=== PATIENT | female | born 1990 | race Caucasian/White ===

== ENCOUNTER 2019-07-19 04:58 | Emergency (ER) | payer OTHER ==
[~2019-07-19] VITALS: Ht 162.6 cm; Wt 59.0 kg
[2019-07-19] MEDS ORDERED: OXYCODONE HCL/ACETAMINOPHEN 5/325MG TABLET PO ONE (06:45)
[2019-07-19] MEDS ORDERED: TETANUS, DIPHTHERIA, PERTUSSIS VAC/PF 0.5ML (>7YR OLD) IM ONE (06:45)
[2019-07-19] MEDS ORDERED: LIDOCAINE 1%/EPI 1:100,000 10 ML VIAL IJ ONE (06:45)
[2019-07-19] MEDS ORDERED: LIDOCAINE HCL/EPINEPHRINE 1%-EPI 1:100,000 20 ML VIAL INFIL SCH (07:05)
[2019-07-19] MEDS ORDERED: FLUORESCEIN SODIUM 1MG/STRIP LEFTEYE ONE (07:45)
[2019-07-19] MEDS ORDERED: TETRACAINE 0.5% OPHTH DROPS 4ML LEFTEYE ONE (07:45)
[2019-07-19 09:18] VITALS: BP 98/51
== END 2019-07-19 09:18 | disposition home or self-care (01) ==
LOC: ER 05:35
DX: S01.01XA Laceration without foreign body of scalp, initial encounter (principal); H57.12 Ocular pain, left eye; Y04.2XXA Assault by strike against or bumped into by another person, initial encounter; Y93.89 Activity, other specified; Y92.89 Other specified places as the place of occurrence of the external cause; H20.9 Unspecified iridocyclitis; Z23 Encounter for immunization
CPT/HCPCS: 70450; 70486; 90471; 90715; 99284; J3490

== ENCOUNTER 2019-07-20 18:23 | Emergency (ER) | payer OTHER ==
[~2019-07-20] VITALS: Ht 165.1 cm; Wt 60.0 kg
[2019-07-20] MEDS ORDERED: METHOCARBAMOL 750MG TABLET PO SCH (23:30)
[2019-07-20] MEDS ORDERED: HYDROCODONE/ACETAMINOPHEN 5/325MG TABLET PO ONE (23:30)
[2019-07-21 02:15] VITALS: BP 96/57
== END 2019-07-21 02:15 | disposition home or self-care (01) ==
LOC: ER 18:23
DX: M54.5 Low back pain (principal); Y08.89XA Assault by other specified means, initial encounter; Y93.89 Activity, other specified; Y92.89 Other specified places as the place of occurrence of the external cause; Y99.8 Other external cause status; Z90.89 Acquired absence of other organs
CPT/HCPCS: 81025; 99283

== ENCOUNTER 2019-08-03 13:55 | Emergency (ER) | payer OTHER ==
[~2019-08-03] VITALS: Ht 165.1 cm; Wt 59.0 kg
[2019-08-03 18:35] VITALS: BP 110/67
== END 2019-08-03 18:36 | disposition home or self-care (01) ==
LOC: ER 13:55
DX: Z48.02 Encounter for removal of sutures (principal)
CPT/HCPCS: 99281

== ENCOUNTER 2019-11-16 18:10 | Emergency (ER) | payer SELFPAY ==
[~2019-11-16] VITALS: Ht 165.1 cm; Wt 57.0 kg
[2019-11-16 22:24] VITALS: BP 112/68
== END 2019-11-16 22:25 | disposition home or self-care (01) ==
LOC: ER 18:10
DX: S60.561A Insect bite (nonvenomous) of right hand, initial encounter (principal); L03.113 Cellulitis of right upper limb; W57.XXXA Bitten or stung by nonvenomous insect and other nonvenomous arthropods, initial encounter; Y93.89 Activity, other specified; Y92.89 Other specified places as the place of occurrence of the external cause
CPT/HCPCS: 99281

== ENCOUNTER 2019-11-24 10:45 | Emergency (ER) | payer SELFPAY ==
[~2019-11-24] VITALS: Ht 165.1 cm; Wt 60.0 kg
[2019-11-24] MEDS ORDERED: ONDANSETRON HCL 4MG/2ML INJ IV STA (11:34)
[2019-11-24] MEDS ORDERED: SODIUM CHLORIDE 0.9% 1,000 ML IV ONE (11:34)
[2019-11-24] MEDS ORDERED: FAMOTIDINE 20MG/2ML VIAL IV STA (11:34)
[2019-11-24] MEDS ORDERED: KETOROLAC 30MG/ML VIAL IV STA (11:34)
[2019-11-24 12:42] LABS: BASOPHILS % 1.1 % (0.0-2.0); EOSINOPHILS % 2.9 % (0.0-5.0); HEMATOCRIT. 41.5 % (36.0-48.0); HEMOGLOBIN. 14.7 g/dL (12.0-16.0); LYMPHOCYTES % 48.5 % (20.0-50.0); MEAN CORPUSCULAR HEMOGLOBIN 31.8 pg (28.0-32.0); MEAN CORPUSCULAR VOLUME 90.1 fL (81.0-99.0); MEAN PLATELET VOLUME 8.4 fl (7.4-10.4); MONOCYTES % 8.6 % (2.0-8.0); NEUTROPHILS % 38.9 % (40.0-76.0); PLATELET 238 x1000/uL (130-400)
[2019-11-24 12:46] LABS: CLARITY URINE CLEAR (CLEAR); COLOR URINE YELLOW (YELLOW); KETONES URINE NEGATIVE (NEGATIVE); LEUKOCYTE ESTERASE URINE 1+ (NEGATIVE); NITRITE URINE NEGATIVE (NEGATIVE); OCCULT BLOOD URINE 2+ (NEGATIVE); PH URINE 5.5 (4.5-8.0); PROTEIN URINE TRACE (NEGATIVE); SPECIFIC GRAVITY URINE 1.024 (1.005-1.030)
[2019-11-24 12:48] LABS: CHLORIDE 108 mEq/L (98-107)
[2019-11-24 12:49] LABS: PROTHROMBIN TIME 10.1 sec (9.6-11.0)
[2019-11-24 13:02] LABS: *AMPHETAMINES SCREEN URINE NEGATIVE (NEGATIVE); *BARBITURATES SCREEN URINE NEGATIVE (NEGATIVE); *BENZODIAZEPINES SCREEN URINE NEGATIVE (NEGATIVE); *COCAINE SCREEN URINE NEGATIVE (NEGATIVE)
[2019-11-24 13:03] LABS: METHADONE URINE SCREEN NEGATIVE (NEGATIVE); OPIATES URINE SCREEN NEGATIVE (NEGATIVE); PHENCYCLIDINE URINE SCREEN NEGATIVE (NEGATIVE)
[2019-11-24 13:04] LABS: HCG SCREEN NEGATIVE
[2019-11-24 13:27] LABS: CANNABINOID URINE SCREEN PRESUMTIVE POSITIVE (NEGATIVE)
[2019-11-24 13:55] VITALS: BP 98/65
== END 2019-11-24 14:39 | disposition home or self-care (01) ==
LOC: ER 10:45
DX: N39.0 Urinary tract infection, site not specified (principal); R11.2 Nausea with vomiting, unspecified; R19.7 Diarrhea, unspecified; R10.13 Epigastric pain
CPT/HCPCS: 36415; 74176; 80053; 80305; 81003; 81025; 83690; 84703; 85025; 85610; 96361; 96374; 96375; 99284; J1885; J2405; J3490; J7030

== ENCOUNTER 2020-03-18 20:13 | Emergency (ER) | payer SELFPAY ==
[~2020-03-18] VITALS: Ht 165.1 cm; Wt 68.0 kg
[2020-03-18] MEDS ORDERED: IBUPROFEN 600MG TABLET PO STA (23:26)
[2020-03-18 23:52] LABS: CLARITY URINE TURBID (CLEAR); COLOR URINE YELLOW (YELLOW); KETONES URINE NEGATIVE (NEGATIVE); LEUKOCYTE ESTERASE URINE 3+ (NEGATIVE); NITRITE URINE NEGATIVE (NEGATIVE); OCCULT BLOOD URINE 1+ (NEGATIVE); PH URINE >=9.0 (4.5-8.0); PROTEIN URINE 2+ (NEGATIVE); SPECIFIC GRAVITY URINE 1.023 (1.005-1.030); UROBILINOGEN URINE 0.2 E.U./dL (0.2-1.0)
[2020-03-19] MEDS ORDERED: ONDANSETRON 4MG ODT PO ONE (00:15)
[2020-03-19 00:40] LABS: BASOPHILS % 0.4 % (0.0-2.0); EOSINOPHILS % 0.1 % (0.0-5.0); HEMATOCRIT. 38.7 % (36.0-48.0); HEMOGLOBIN. 13.4 g/dL (12.0-16.0); LYMPHOCYTES % 8.3 % (20.0-50.0); MEAN CORPUSCULAR HEMOGLOBIN 31.7 pg (28.0-32.0); MEAN CORPUSCULAR VOLUME 91.4 fL (81.0-99.0); MEAN PLATELET VOLUME 8.3 fl (7.4-10.4); MONOCYTES % 3.9 % (2.0-8.0); NEUTROPHILS % 87.3 % (40.0-76.0); PLATELET 192 x1000/uL (130-400); RED BLOOD CELL COUNT 4.24 mill/uL (4.2-5.4); RED CELL DISTRIBUTION WIDTH 13.3 % (11.6-14.6)
[2020-03-19] MEDS ORDERED: CEFTRIAXONE SODIUM 1 G/VIAL IM ONE (00:45)
[2020-03-19] MEDS ORDERED: LIDOCAINE HCL 1% 20ML VIAL (Pyxis) INJ INFIL ONE (00:45)
[2020-03-19 00:49] LABS: CHLORIDE 109 mEq/L (98-107)
[2020-03-19 01:59] VITALS: BP 115/72
== END 2020-03-19 02:02 | disposition home or self-care (01) ==
LOC: ER 20:13
DX: N39.0 Urinary tract infection, site not specified (principal); N20.0 Calculus of kidney
CPT/HCPCS: 36415; 76700; 76857; 80053; 81003; 81025; 83690; 85025; 87077; 87086; 87186; 96372; 99284; J0696; J3490; Q0162

== ENCOUNTER 2021-07-20 08:43 | Emergency (ER) | payer MEDICAID ==
[~2021-07-20] VITALS: Ht 165.1 cm; Wt 59.0 kg
[2021-07-20] MEDS ORDERED: DIPHENHYDRAMINE 50MG/ML VIAL IV ONE (10:15)
[2021-07-20] MEDS ORDERED: EPINEPHRINE 1:1000 1 MG/ML AMP IM ONE (10:15)
[2021-07-20] MEDS ORDERED: METHYLPREDNISOLONE SOD SUCC 125 MG/2 ML VIAL IV ONE (10:15)
[2021-07-20 13:00] VITALS: BP 115/75
[2021-07-20] MEDS ORDERED: P50 MT (13:03)
[2021-07-20] MEDS ORDERED: PRIL20 MT (13:03)
[2021-07-20] MEDS ORDERED: EPIN0.3P3 IM (13:03)
[2021-07-20] MEDS ORDERED: B50 MT (13:03)
== END 2021-07-20 13:23 | disposition home or self-care (01) ==
LOC: ER 08:43
DX: R22.0 Localized swelling, mass and lump, head (principal); Z79.899 Other long term (current) drug therapy
CPT/HCPCS: 96372; 96374; 96375; 99284; J1200; J2930; J3490; Z7610

== ENCOUNTER 2023-10-08 20:21 | Emergency (ER) | payer MEDICAID ==
[~2023-10-08] VITALS: Ht 165.1 cm; Wt 59.0 kg
[~2023-10-08 20:21] MED LIST: B50 MT; EPIN0.3P3 IM; P50 MT; PRIL20 MT
[2023-10-08 20:34] VITALS: BP 132/75; PULSE 115; RESP 20; TEMP 99.3; O2SAT 99
[2023-10-08] MEDS ORDERED: BACITRACIN ZINC OINT UDPKT TOP ONE (20:45)
== END 2023-10-08 21:21 ==
LOC: ER 20:21
DX: S80.212A Abrasion, left knee, initial encounter (principal); S80.211A Abrasion, right knee, initial encounter; F10.129 Alcohol abuse with intoxication, unspecified; Y90.9 Presence of alcohol in blood, level not specified; X58.XXXA Exposure to other specified factors, initial encounter; Y93.89 Activity, other specified; Y92.89 Other specified places as the place of occurrence of the external cause; Y99.8 Other external cause status
CPT/HCPCS: 99283